=== PATIENT | female | born 1965 | race Caucasian/White ===

== ENCOUNTER 2020-11-28 10:00 | Observation (INO) | payer BC ==
[2020-11-28] MEDS ORDERED: LIDOCAINE 5% TOPICAL PATCH TP ONE (10:15)
[2020-11-28] MEDS ORDERED: ACETAMINOPHEN 1000 MG/100 ML VIAL (NON FORMULARY) IVPB ONE (10:15)
[2020-11-28] MEDS ORDERED: LACTATED RINGERS SOLUTION 1000 ML INFUS.BAG IV ONE ×3 (10:15→12:20)
[2020-11-28] MEDS ORDERED: ACETAMINOPHEN INJECTION 100 ML IVPB ONE (10:32)
[2020-11-28] MEDS ORDERED: LIDOCAINE 5% TOPICAL PATCH ONE (10:37)
[2020-11-28 10:48] LABS: BASO % 1.1 % (0-2.0); EOS % 1.1 % (0-4.5); HEMOGLOBIN 14.5 GM/dl (10.7-15.3); LYMPH % 13.7 % (8-40); MCH 32.7 pg (25.7-33.7); MCHC 33.8 g/dl (32.0-36.0); MEAN CELL VOLUME 96.8 fl (80-96); MEAN PLT VOLUME 7.7 fl (7.5-11.1); MONO % 4.8 % (3.8-10.2); NEUT % 79.3 % (42.8-82.8); PLATELET COUNT 212 10^3/uL (134-434); RBC 4.44 M/mm3 (3.60-5.2); RDW 13.1 % (11.6-15.6)
[2020-11-28 10:56] LABS: ALBUMIN 4.1 g/dl (3.4-5.0); ALK PHOS 43 U/L (45-117); ANION GAP 6 MMOL/L (8-16); BILIRUBIN,TOTAL 0.9 mg/dl (0.2-1); CHLORIDE 101 mmol/L (98-107); CO2 28 mmol/L (21-32); CREATININE 0.7 mg/dl (0.55-1.3); GLUCOSE,RANDOM 115 mg/dl (74-106); SGOT/AST 26 U/L (15-37); SGPT/ALT 22 U/L (13-61); SODIUM 135 mmol/L (136-145); TOT PROT 6.8 g/dl (6.4-8.2)
[2020-11-28 10:57] LABS: ACTIVATED PTT 23.1 SECONDS (25.2-36.5)
[2020-11-28 11:01] LABS: INR 0.96 (0.82-1.09); PROTHROMBIN TIME (PATIENT) 10.8 SEC (10.2-13.0)
[2020-11-28] MEDS ORDERED: KETOROLAC TROMETHAMINE 15 MG/ML VIAL IVPUSH ONE (12:26)
[2020-11-28] MEDS ORDERED: KETOROLAC TROMETHAMINE 15 MG/ML VIAL ONE (12:30)
[2020-11-28 12:41] LABS: HCG,QUALITATIVE URINE Negative
[2020-11-28 12:48] LABS: EPITHELIAL CELLS MODERATE /hpf
[2020-11-28] MEDS ORDERED: ACETAMINOPHEN 325 MG TABLET (FP) PO PRN ×2 (13:44→14:43)
[2020-11-28] MEDS ORDERED: traMADol HCL 50 MG TABLET PO PRN (14:44)
[2020-11-28 15:10] VITALS: BMI 22.9
[2020-11-28] MEDS: SODIUM CHLORIDE 1,000 ML IV SCH (15:50)
[2020-11-28] MEDS: ENOXAPARIN NA (PORCINE) 40 MG/0.4 ML DISP.SYRIN SQ SCH (15:59)
[2020-11-28] MEDS ORDERED: clonazePAM 0.5 MG TABLET PO SCH (22:00)
[2020-11-28] MEDS ORDERED: LIDOCAINE PATCH REMOVAL MC SCH (22:00)
[2020-11-29 08:12] LABS: EOS % 1.4 % (0-4.5); HEMATOCRIT 41.9 % (32.4-45.2); HEMOGLOBIN 13.6 GM/dl (10.7-15.3); LYMPH % 19.2 % (8-40); MCH 31.5 pg (25.7-33.7); MCHC 32.4 g/dl (32.0-36.0); MEAN CELL VOLUME 97.1 fl (80-96); MEAN PLT VOLUME 8.1 fl (7.5-11.1); MONO % 5.9 % (3.8-10.2); NEUT % 72.5 % (42.8-82.8); PLATELET COUNT 224 10^3/uL (134-434); RBC 4.31 M/mm3 (3.60-5.2); WHITE BLOOD COUNT 6.2 K/mm3 (4.0-10.8)
[2020-11-29 08:15] LABS: CALCIUM 8.7 mg/dl (8.5-10); CREATININE 0.7 mg/dl (0.55-1.3); MAGNESIUM 1.8 mg/dL (1.8-2.4)
[2020-11-29] MEDS: ENOXAPARIN NA (PORCINE) 40 MG/0.4 ML DISP.SYRIN SQ SCH (09:58)
[2020-11-29] MEDS ORDERED: ESCITALOPRAM OXALATE 10 MG TABLET PO SCH (10:00)
[2020-11-29 14:04] VITALS: BP 115/68; PULSE 55; TEMP 98.3
[2020-11-29] MEDS: SODIUM CHLORIDE 1,000 ML IV SCH (14:32)
== END 2020-11-29 14:42 | disposition home or self-care (01) ==
LOC: FER 10:00 → INTOOBSV 12:34 → UNDOADMOB 12:34 → FM/S 12:34
PROVIDERS: ADMIT Internal Medicine; ATTEND Nurse Practitioner Acute Care
PROC: 0CQ10ZZ Repair Lower Lip, Open Approach (ICD-10-PCS; principal; 2020-11-28)
PROC: 3E0337Z Introduction of Electrolytic and Water Balance Substance into Peripheral Vein, Percutaneous Approach (ICD-10-PCS; 2020-11-28)
PROC: 3E0333Z Introduction of Anti-inflammatory into Peripheral Vein, Percutaneous Approach (ICD-10-PCS; 2020-11-28)
PROC: 3E033NZ Introduction of Analgesics, Hypnotics, Sedatives into Peripheral Vein, Percutaneous Approach (ICD-10-PCS; 2020-11-28)
DX: S01.511A Laceration without foreign body of lip, initial encounter (principal); T42.8X5A Adverse effect of antiparkinsonism drugs and other central muscle-tone depressants, initial encounter; R55 Syncope and collapse; R00.1 Bradycardia, unspecified; W18.39XA Other fall on same level, initial encounter; Y93.89 Activity, other specified; Y92.009 Unspecified place in unspecified non-institutional (private) residence as the place of occurrence of the external cause; Z88.8 Allergy status to other drugs, medicaments and biological substances; F41.8 Other specified anxiety disorders; I65.8 Occlusion and stenosis of other precerebral arteries; G89.29 Other chronic pain; M51.26 Other intervertebral disc displacement, lumbar region
CPT/HCPCS: 36415; 70450-TC; 70486-TC; 71045-TC-FY; 72125-TC; 72131-TC; 80048; 80053; 81003; 81015; 82550; 83735; 84443; 84484; 84703; 85025; 85610; 85730; 93005; 93306-TC; 97116-GP; 97162-GP; 99285-25; C9803; G0378; J0131; U0003; U0005